=== PATIENT | male | born 1940 | race African-American/Black ===

== ENCOUNTER 2017-02-09 16:35 | Emergency (ER) | payer OTHER ==
--- NOTE | ~2017-02-09 | EKG ---
PATIENT: RUI STARKS UNIT #: [id number] Ventricular Rate: 67 BPM Atrial Rate: 67 BPM P-R Interval: 200 ms QRS Duration: 120 ms Q-T Interval: 386 ms QTC Calculation(Bezet): 407 ms P [place]: -1 degrees Calculated R [place]: -34 degrees Calculated T [place]: 64 degrees Diagnosis Line: Normal sinus rhythm Diagnosis Line: Left axis deviation Diagnosis Line: Abnormal ECG Diagnosis Line: No previous ECGs available Diagnosis Line: Confirmed by DALTON ORTEGA MD ([id number]) on 02/10/2017 Diagnosis Line: 6:40:26 PM INTERPRETING MD: JORDAN CROWELL
--- NOTE | ~2017-02-09 | CR72 ---
[facility] A Service of [facility] RADIOLOGY TEXT RESULTS PATIENT: RUI STARKS LOCATION: [facility] : 36 UNIT #: [id number] AGE: [address]: Joby Tran MD SEX: M ORDER DR: [id number] [place], [place] [address] [id number] E MR#: [id number] Acc #: [id number] NAME: RUI STARKS : 1940 SEX: M STUDY DATE/TIME: 02/09/2017 17:27 UNIT: [facility] ROOM: STUDY DESCRIPTION: CR Chest Single View Portable Attending Physician: Joby Tran M.D. Ordering Physician: Ed Ovi Ortega M.D. Primary Care Physician: Harley Levine M.D. MEDICAL IMAGING REPORT This report is preliminary unless electronic signature is present EXAM Portable chest INDICATION CHF. Shortness of air for the past week. PROCEDURE Frontal view chest. COMPARISON None. FINDINGS Large cardiomegaly with moderate prominence of central pulmonary vessels. No dense consolidation. Possible small right effusion. No visible pneumothorax. IMPRESSION 1. Large cardiomegaly with moderate central vascular congestion. 2. Possibly small right pleural effusion. Dictated by... Jason Cornelius M.D. THIS IS AN ELECTRONICALLY VERIFIED REPORT Jason Cornelius M.D. at 02/10/2017 2:25 PM EED/ljd TD: 02/09/2017 22:05 JOB #: [id number] [facility] A Service of [facility] RADIOLOGY TEXT RESULTS PATIENT: RUI STARKS LOCATION: [facility] : 36 UNIT #: [id number] AGE: [address]: Joby Tran MD SEX: M ORDER DR: MEDICAL IMAGING REPORT Page 1 of 1 COPY
[2017-02-09 17:33] LABS: BASOPHIL# 0.1 X10e3 (0-0.3); EOSINOPHIL# 0.1 X10e3 (0-0.7); EOSINOPHIL% 1.9 % (0.0-7.0); HEMATOCRIT 39.8 % (38.0-50.0); HEMOGLOBIN 13.1 gm/dL (13.0-16.0); LYMPHOCYTE# 1.7 X10e3 (1.0-3.5); MEAN CELL VOLUME 94.9 FL (83-96); MEAN CORPUSCULAR HEMOGLOBIN 31.2 PG (28-34); MEAN CORPUSCULAR HGB CONC 32.8 g/dL (30-36); MEAN PLATELET VOLUME 8.2 FL (6.5-11.5); MONOCYTE# 0.6 X10e3 (0-1.0); MONOCYTE% 8.3 % (3.0-12.0); NEUTROPHIL# 4.8 X10e3 (1.5-7.1); NEUTROPHIL% 65.8 % (40-75); PLATELET COUNT 256 X10e3 (140-420); RED BLOOD COUNT 4.19 X10e (3.90-5.60); RED CELL DISTRIBUTION WIDTH 13.6 % (11.0-15.5); WHITE BLOOD COUNT 7.3 X10e3 (4.0-10.5)
[2017-02-09 17:34] LABS: DIFF IND NO
[2017-02-09 17:54] LABS: BUN/CREATININE RATIO 11.25; CALCIUM SERUM 9.5 mg/dL (8.4-10.2); CREATININE SERUM 1.6 mg/dL (0.6-1.4); GLOM FILT RATE Estimated 47.1 mL/min (>60); POTASSIUM 4.6 mmol/L (3.5-5.1)
== END 2017-02-09 18:35 | disposition home or self-care (01) ==
LOC: CED 16:35
DX: L03.115 Cellulitis of right lower limb (principal); I25.2 Old myocardial infarction; E11.9 Type 2 diabetes mellitus without complications
CPT/HCPCS: 71010; 80048; 83880; 85025; 93005; 96372; 99283; J1885